=== PATIENT | male | born 1950 | race Caucasian/White ===

== ENCOUNTER 2023-08-10 05:50 | Day surgery (SDC) | payer MEDICARE, OTHER, SELFPAY ==
[2023-08-03 11:57] VITALS: BMI 29.0
[2023-08-10 06:20] VITALS: BP 178/94; PULSE 58; RESP 16; TEMP 36.3; O2SAT 100; BMI 28.6
--- NOTE | 2023-08-10 07:08 | P.PNAN_ITS ---
Anes - Initial Pre Proc Eval Procedure: Operation Date: 08/10/23 07:30 Proposed Procedures p Diagnostic Colonoscopy - Frederic Longo MD Date/Time: 08/10/23 07:08 Surgeon: Frederic Longo MD Pre Op Diagnosis: Positive Cologuard test Patient Data Age: 73 Gender: M Height: 1.78 m Weight: 90.6 kg Last Vital Signs Temp 36.3 C L 08/10/23 06:20 Pulse 58 L 08/10/23 06:20 Resp 16 08/10/23 06:20 BP 178/94 H 08/10/23 06:20 Pulse Ox 100 08/10/23 06:20 O2 Del Method Room Air 08/10/23 06:20 Allergies Allergy/AdvReac Type Severity Reaction Status Date / Time No Known Allergies Allergy Verified 08/04/23 08:18 Home Medications Medication Instructions Recorded Confirmed Type Vitamin D3 1 tab-cap PO DIRECTED 08/04/23 08/10/23 History aspirin 81 mg capsule 81 mg PO DAILY 08/04/23 08/10/23 History atenolol 50 mg tablet 50 mg PO DAILY 08/04/23 08/10/23 History atorvastatin 10 mg tablet 10 mg PO DAILY 08/04/23 08/10/23 History fluticasone propionate 50 1 spray intranasal DAILY 08/04/23 08/10/23 History mcg/actuation nasal spray,suspension lisinopril 10 1 tablet PO BID 08/04/23 08/10/23 History mg-hydrochlorothiazide 12.5 mg tablet montelukast 10 mg tablet 10 mg PO DAILY 08/04/23 08/10/23 History Patient hx anesthesia problems: none Family hx anesthesia problems: none Results Review: All pre-operative results and documents have been reviewed as part of the pre- operative evaluation. [facility] Past Medical History Medical History (Updated 08/10/23 @ 07:18 by Shravan Briceño MD) HTN (hypertension) Overweight Skin cancer Surgical History Surgical History (Updated 08/10/23 @ 07:18 by Shravan Briceño MD) History of shoulder surgery Social History Social History Smoking status: Former smoker Substance use type: does not use Living arrangements: with family Anes - Eval Final PreProcedure Day of Procedure 08/10/23 07:08 Patient weight: overweight Heart: regular rate and rhythm Lungs: clear to auscultation Airway: Mallampati scale class II Neurological: alert and oriented Last oral intake: >/= 8 hours ASA classification: II Emergent: no Anesthetic plan: proceed Anesthesia type and monitoring: general GIVS and standard monitoring Results Review: All pre-operative results and documents have been reviewed as part of the pre- operative evaluation. Informed Consent: The patient's anesthetic plan and its attendant risks and benefits were discussed with the patient/family/POA. Questions were solicited and answers provided to the satisfaction of the patient/family/POA.
--- NOTE | 2023-08-10 07:09 | P.HP_ITS ---
History of Present Illness History of Present Illness Consent: Risks, benefits, and alternatives have been discussed and questions answered. Patient agrees to proceed with procedure. Chief complaint: Positive Cologuard test Narrative: Gabino Vazquez is a 73 year old male presents for screening colonoscopy. Patient reports his bowel habits are normal. He has not had abdominal pain or bleeding. Recent Cologuard test was found to be positive. Review of Systems Review of Systems: Review of systems noncontributory. [facility] Social History Social History Smoking status: Former smoker Substance use type: does not use Living arrangements: with family Meds Home Medications and Allergies Home Medications Medication Instructions Recorded Confirmed Type Vitamin D3 1 tab-cap PO DIRECTED 08/04/23 08/10/23 History aspirin 81 mg capsule 81 mg PO DAILY 08/04/23 08/10/23 History atenolol 50 mg tablet 50 mg PO DAILY 08/04/23 08/10/23 History atorvastatin 10 mg tablet 10 mg PO DAILY 08/04/23 08/10/23 History fluticasone propionate 50 1 spray intranasal DAILY 08/04/23 08/10/23 History mcg/actuation nasal spray,suspension lisinopril 10 1 tablet PO BID 08/04/23 08/10/23 History mg-hydrochlorothiazide 12.5 mg tablet montelukast 10 mg tablet 10 mg PO DAILY 08/04/23 08/10/23 History Allergies Allergy/AdvReac Type Severity Reaction Status Date / Time No Known Allergies Allergy Verified 08/04/23 08:18 Vital Signs Vital Signs - 24 hr 08/10/23 06:20 Temperature 97.3 F L Pulse Rate 58 L Respiratory Rate 16 Blood Pressure 178/94 H Pulse Oximetry 100 Oxygen Delivery Room Air Exam Narrative: Physical exam reveals patient to be alert. Vital signs stable. HEENT exam is unremarkable. Patient is anicteric. Lungs are clear to auscultation and percussion. Heart without murmur or extra sounds. Abdomen bowel sounds are present soft nontender with no organomegaly. Digital external rectal exam is normal. Assessment and Plan Assessment and plan (1) Positive colorectal cancer screening using Cologuard test: Code(s): R19.5 - Other fecal abnormalities Status: Acute Assessment and Plan: Since today for screening colonoscopy because recent Cologuard test was positive.
[2023-08-10] MEDS: LACTATED RINGERS 1,000 ML 150 ML IV CONT (07:15)
[2023-08-10 07:40] VITALS: BP 89/57; PULSE 58; RESP 18; O2SAT 99
[2023-08-10 07:50] VITALS: BP 119/71; PULSE 63; RESP 16; O2SAT 100
[2023-08-10 08:00] VITALS: BP 117/75; PULSE 59; RESP 15; O2SAT 100
--- NOTE | 2023-08-10 08:34 | WPDANESPN ---
Anes - Prog Note Post-Op Date/Time: 08/10/23 08:34 Cardiovascular status: normal Respiratory status: normal Airway patency: baseline Mental status: baseline Post-Op hydration status: normal Vital Signs: Last Vital Signs Temp 36.3 C L 08/10/23 06:20 Pulse 59 L 08/10/23 08:00 Resp 15 08/10/23 08:00 BP 117/75 08/10/23 08:00 Pulse Ox 100 08/10/23 08:00 O2 Del Method Room Air 08/10/23 08:00 Pain Score (VAS): 0/10 I/O: Intake & Output 08/09/23 08/10/23 08/10/23 23:59 07:59 15:59 Intake Total 500 400 Balance 500 400 Patient Feedback: Patient satisfied with anesthetic care.
== END 2023-08-10 08:13 | disposition home or self-care (01) ==
PROVIDERS: PCP Family Medicine Sports Medicine; Visit Provider Internal Medicine Gastroenterology
PROC: 0DJD8ZZ Inspection of Lower Intestinal Tract, Via Natural or Artificial Opening Endoscopic (ICD-10-PCS; CPT 45378; principal; 2023-08-10 07:30)
DX: R19.5 Other fecal abnormalities (principal); D12.5 Benign neoplasm of sigmoid colon; K57.30 Diverticulosis of large intestine without perforation or abscess without bleeding
CPT/HCPCS: 45385

== ENCOUNTER 2023-08-10 06:00 | Outpatient (NON) | payer MEDICARE, OTHER, SELFPAY | END 2023-08-10 06:01 | disposition home or self-care (01) | LOC: ANHLAB 08-11 07:09 | PROVIDERS: PCP Family Medicine Sports Medicine; Visit Provider Internal Medicine Gastroenterology | DX: R19.5 Other fecal abnormalities (principal) | CPT/HCPCS: 88305 ==